=== PATIENT | female | born 1965 | race American Indian/Alaskan Native ===

== ENCOUNTER 2016-09-17 09:40 | Outpatient (CLI) | payer OTHER ==
[2016-09-17 10:50] LABS: Blood Urea Nitrogen 15 mg/dL (7-17)
[2016-09-17] MEDS ORDERED: NACL ONE (12:19)
--- NOTE | 2016-09-17 14:46 | Cat Scan Report ---
CT abdomen and pelvis with contrast: History: Right lower quadrant pain. Large bowel malignancy. Transverse images were obtained from the lower chest to the ischium with coronal and sagittal 2-D reformatted images. The visualized lung bases are clear. There is a well-defined 6.5 mm hypodensity in the left lobe of the liver most likely representing a cyst. The gallbladder has been removed. The abdominal and retroperitoneal organs are lucas unremarkable. The abdominal aorta is normal in size and contour. There is no periaortic or mesenteric adenopathy identified. Most of the oral contrast is in the small bowel. I cannot clearly identify landmarks of the cecum and the possibility that this is been resected may be an explanation in view of her history. The moderate volume of fecal matter in the ascending colon. The bowel is otherwise generally unremarkable. The patient has a reproductive organs. There is no pelvic mass and no fluid. There is degenerative narrowing of the L5-S1 disc. This is scattered minimal spondylosis and areas of sclerosis along the articular margins of mid vertebral lumbar bodies. Impressions: No evidence of acute or chronic abdominal pathology.
== END 2016-09-17 09:41 | disposition home or self-care (01) ==
LOC: CT 09:40
PROVIDERS: ATTEND Internal Medicine Gastroenterology
DX: K92.2 Gastrointestinal hemorrhage, unspecified (principal); M47.897 Other spondylosis, lumbosacral region; R10.11 Right upper quadrant pain; Z85.038 Personal history of other malignant neoplasm of large intestine; Z90.49 Acquired absence of other specified parts of digestive tract
CPT/HCPCS: 36415; 74177; 82565; 84520; Q9967

== ENCOUNTER 2017-03-13 04:00 | Inpatient (IN) | payer OTHER ==
[2017-03-13 04:50] LABS: Basophils % (Auto) 1.1 % (0.0-1.8); Eosinophils % (Auto) 3.6 % (0.0-4.3); Hematocrit 38.5 % (30.3-42.9); Hemoglobin 12.9 gm/dl (10.1-14.3); Mean Corpuscular HGB Conc 34 % (30-34); Mean Corpuscular Hemoglobin 30 pg (28-32); Mean Corpuscular Volume 90 fl (79-97); Platelet Count 209 K/mm3 (140-440); Red Blood Count 4.28 M/mm3 (3.65-5.03); Red Cell Distribution Width 13.8 % (13.2-15.2); White Blood Count 5.1 K/mm3 (4.5-11.0)
[2017-03-13 05:01] LABS: INR 1.11 (0.87-1.13)
[2017-03-13 05:02] LABS: Partial Thromboplastin Time 29.7 Sec. (24.2-36.6)
[2017-03-13 05:05] LABS: Anion Gap 18 mmol/L; BUN/Creatinine Ratio 41.66; Blood Urea Nitrogen 25 mg/dL (7-17); Calcium 9.7 mg/dL (8.4-10.2); Carbon Dioxide 29 mmol/L (22-30); Chloride 100.2 mmol/L (98-107); Glucose 87 mg/dL (65-100); Potassium 3.9 mmol/L (3.6-5.0); Sodium 143 mmol/L (137-145)
[2017-03-13 05:22] LABS: Bilirubin,Urine NEG (Negative); Blood,Urine NEG (Negative); Ketones,Urine NEG (Negative); Leukocyte Esterase,Urine MOD (Negative); Nitrite,Urine NEG (Negative); Protein,Urine <15 mg/dL mg/dL (Negative); Urobilinogen,Urine < 2.0 mg/dL (<2.0)
--- NOTE | 2017-03-13 10:33 | Emergency Department Report ---
ED Chest Pain HPI - General Chief Complaint: Chest Pain Stated Complaint: CHEST PAIN Time Seen by Provider: 03/13/17 10:00 Source: patient Mode of arrival: Ambulatory Limitations: No Limitations - History of Present Illness Initial Comments: 52-year-old Afro-[place] female presents to the emergency department with a one -week history of present worsening but intermittent left-sided chest pain that feels like a "grabbing pain." There is some radiation to the left upper arm. She has some diaphoresis and occasional nausea but denies any vomiting, fever, shortness of breath. She not take anything specific for her symptoms prior to presentation but just took her "regular meds." Her primary care physician is Dr. White. She's never had a stress test but is scheduled for one on the . She has a past medical history of fibromyalgia and previous colon cancer. No recent travel or sick contacts at home. She denies tobacco or illicit drug use or abuse. Severity scale (0 -10): 8 - Related Data Previous Rx's Medication Instructions Recorded Last Taken Type Ibuprofen [Motrin] 800 mg PO Q8HR PRN #10 tablet 09/23/16 Unknown Rx Meclizine HCl [Meclizine CHEW] 25 mg PO Q6HR PRN #15 tab.chew 09/23/16 Unknown Rx Allergies Allergy/AdvReac Type Severity Reaction Status Date / Time chicken derived AdvReac Vomiting,RA Unverified 09/17/16 09:42 SH,HIVES latex AdvReac Rash Unverified 09/17/16 09:42 Sulfa (Sulfonamide AdvReac Rash,HIVES Unverified 09/17/16 09:42 Antibiotics) Heart Score - HEART Score History: Moderately suspicious EKG: Normal Age: 45-65 Risk factors: 1-2 risk factors Troponin: < normal limit HEART Score: 3 - Critical Actions Critical Actions: 0-3 pts:0.9-1.7%risk of adverse cardiac event.Candidate for discharge ED Review of Systems ROS: Stated complaint: CHEST PAIN Other details as noted in HPI Comment: All other systems reviewed and negative Constitutional: diaphoresis. denies: chills, fever Eyes: denies: eye pain, eye discharge, vision change ENT: denies: ear pain, throat pain Respiratory: denies: cough, shortness of breath Cardiovascular: chest pain. denies: palpitations Gastrointestinal: nausea. denies: abdominal pain, vomiting Genitourinary: denies: urgency, dysuria, discharge Musculoskeletal: denies: back pain, joint swelling, arthralgia Skin: denies: rash, lesions Neurological: denies: headache, weakness, paresthesias ED Past Medical Hx - Past Medical History Previous Medical History?: Yes Hx Hypertension: Yes Hx of Cancer: Yes (colon) Additional medical history: elevated liver enzymes. fibroid mylagia - Surgical History Past Surgical History?: Yes Hx Cholecystectomy: Yes Additional Surgical History: colon resection. stomach sleeve - Social History Smoking Status: Never Smoker Substance Use Type: None - Medications Home Medications: Home Medications Medication Instructions Recorded Confirmed Last Taken Type Ibuprofen [Motrin] 800 mg PO Q8HR PRN #10 tablet 09/23/16 Unknown Rx Meclizine HCl [Meclizine CHEW] 25 mg PO Q6HR PRN #15 tab.chew 09/23/16 Unknown Rx ED Physical Exam - General Limitations: No Limitations - Other Other exam information: GENERAL: The patient is well-developed well-nourished. HEENT: Normocephalic. Atraumatic. Extraocular motions are intact. Patient has moist mucous membranes. Pupils equal reactive to light bilaterally. NECK: Supple. Trachea is midline. CHEST/LUNGS: Clear to auscultation. There is no respiratory distress noted. There is some chest pain to palpation of the chest wall but the patient says this is not the same discomfort that brought her to the emergency department. HEART/CARDIOVASCULAR: Regular. There is no tachycardia. There is no gallop rub or murmur. ABDOMEN: Abdomen is soft, nontender. Patient has normal bowel sounds. There is no abdominal distention. SKIN: Skin is warm and dry. NEURO: The patient is awake, alert, and oriented. The patient is cooperative. The patient has no focal neurologic deficits. The patient has normal speech. MUSCULOSKELETAL: There is no tenderness or deformity. There is no limitation range of motion. There is no evidence of acute injury. ED Course Vital Signs 03/13/17 03/13/17 04:06 08:23 Temperature 98.1 F 98.5 F Pulse Rate 74 75 Respiratory 18 20 Rate Blood Pressure 125/87 134/96 O2 Sat by Pulse 100 100 Oximetry TENZIN score - Tenzin Score Age > 65: (0) No Aspirin use within the Past 7 Days: (0) No 3 or more CAD Risk Factors: (0) No 2 or more Angina events in past 24 hrs: (1) Yes Known CAD with more than 50% Stenosis: (0) No Elevated Cardiac Markers: (0) No ST Deviation Greater than 0.5mm: (0) No TENZIN Score: 1 ED Medical Decision Making - Lab Data Result diagrams: 03/13/17 04:20 03/13/17 04:20 - EKG Data -: EKG Interpreted by Me EKG shows normal: sinus rhythm, axis, intervals, QRS complexes, ST-T waves ( nonspecific T waves) Rate: normal - EKG Data When compared to previous EKG there are: no significant change Interpretation: unchanged when compared t (09/23/16) - Radiology Data Radiology results: image reviewed interpreted by me: Chest x-ray did not show any acute process. Heart is normal shape and size. No effusions. No pneumothorax. No signs of pneumonia seen. - Medical Decision Making 52-year-old female presents with progressively worsening one-week history of chest pain. History of fibromyalgia. EKG does not show any ST elevation NC, ischemia or dysrhythmia. Negative troponins 3 and a negative d-dimer. However patient continues to have discomfort. She is already scheduled for a stress test on the but instead will be admitted to hospital for either a stress test or cardio consultation. Accepted for admission by the hospitalist, Dr. Noel. - Differential Diagnosis NC, PE, costochondritis, pneumonia Critical Care Time: No Critical care attestation.: If time is entered above; I have spent that time in minutes in the direct care of this critically ill patient, excluding procedure time. ED Disposition Clinical Impression: Left arm pain Chest pain Qualifiers: Chest pain type: unspecified Qualified Code(s): R07.9 - Chest pain, unspecified Disposition: OP ADMIT IP TO THIS HOSP Is pt being admited?: Yes Condition: Stable Instructions: Chest Pain (ED) Referrals: BEKA WHITE MD [Primary Care Provider] - 3-5 Days
--- NOTE | 2017-03-13 10:57 | XRay Report ---
AP CHEST: HISTORY: chest pain AP view of the chest demonstrates a normal mediastinal and cardiac contour with clear lungs and normal bony and soft tissue structures. IMPRESSION: Unremarkable AP chest.
[2017-03-13] MEDS ORDERED: BABY ASPIRIN PO ONE (11:09)
--- NOTE | 2017-03-13 11:26 | Admit Criteria Form ---
Admission Criteria Documentation: CARDIOLOGY GRG Clinical Indications for Admission to Inpatient Care ( Place 'X' for any and all applicable criteria): Hospital admission is needed for appropriate care of the patient because of ANY ONE of the following (1): [ ] I. Hemodynamic instability as indicated by ALL of the following (1)(2)(3) (4)(5) [ ]a) Vital signs or other findings not as expected for chronic patient condition or baseline [ ]b) Instability indicated by ANY ONE of the following: [ ]i) Hypotension [ ]ii) Symptomatic Tachycardia unresponsive to treatment ( e.g., analgesia, fluids, sedation as indicated) [ ]iii) Inadequate perfusion indicated by ANY ONE of the following: [ ] 1) Lactic acidosis (> 2 mmol/L) [ ] 2) New abnormal capillary refill (> 3 seconds) [ ] 3) Reduced urine output [ ] 4) New altered mental status [ ]iv) Orthostatic vital sign changes unresponsive to treatment (e.g., fluids) [ ]v) IV inotropic or vasopressor medication required to maintain adequate blood pressure or perfusion [ ] II. Severe heart failure as indicated by ANY ONE of the following(17)(18) [ ]a) Respiratory distress [ ]b) Hypotension [ ]c) Anasarca (refractory to outpatient therapy) [ ]d) Cardiac arrhythmias of immediate concern [ ]e) Myocardial ischemia [ ] III. Cardiac arrhythmias or findings of immediate concern indicated by ANY ONE of the following (19)(20): [ ] a) Heart rhythms that are inherently dangerous or unstable indicated by ANY ONE of the following (21)(22)(23): [ ] i) Resuscitated ventricular fibrillation or cardiac arrest [ ] ii) Ventricular escape rhythm [ ] iii) Sustained ventricular tachycardia (30 seconds or more of ventricular rhythm at greater than 100 beats per minute) [ ] iv) Nonsustained ventricular tachycardia and ANY ONE of the following: [ ] 1) Suspected cardiac ischemia as cause or consequence of ventricular tachycardia [ ] 2) In setting of acute myocarditis [ ] b) Unstable cardiac conduction defects indicated by ANY ONE of the following(23)(24)(25) [ ] i) Type II second-degree atrioventricular block [ ]ii) Third-degree atrioventricular block [ ]iii) New-onset left bundle branch block with suspected myocardial ischemia [ ]c) Any heart rhythm and ANY ONE of the following (21)(22)(26)(27) (28) [ ] i) Continuous long-term ECG monitoring needed (e.g., initiation of drug requiring monitoring for more than 24 hours) [ ] ii) Patient has automatic implanted cardioverter defibrillator that is repeatedly firing, malfunctioning, or in need of immediate adjustment of settings beyond the scope of ambulatory or observation care [ ]d) Heart rhythms of concern due to ANY ONE of the following: [ ] i) Hypotension [ ] ii) Respiratory distress [ ] iii) Association with other significant symptoms (e.g., bradycardia with syncope or ongoing dizziness, supraventricular tachycardia with chest pain (14)(15)(17) [ ] IV. Monitoring for cardiac contusion beyond the scope of observation care needed [A](30)(31)(32) [ ] V. Surgical or device complication (e.g., valve replacement complication , pacemaker dysfunction) (35)(41)(44)(45)(46) [ ] . Inpatient palliative care needed. [B](49) Also use Inpatient Palliative Care Criteria [ ] VII. Nonbacterial thrombotic (marantic) endocarditis (36)(43)(47)(48) [X] VIII. Cardiology condition, symptom, or finding for which emergency and observation care has failed or are not considered appropriate. [ ] IX. Acute valvular disease requiring inpatient as indicated by ANY ONE of the following (41) [ ]a) Acute valvular regurgitation (42) [ ]b) Noninfectious valvulitis (43) [ ]c) Obstructive valve thrombosis [ ]d) Paravalvular leak [ ]e) Other significant valvular disorder remaining after emergency or observation level of care (as appropriate) [ ]X. Pericardial disease requiring inpatient treatment as indicated by ANY ONE of the following (33)(34)(35)(36)(37) [ ]a) Suspected tamponade (38)(39)(40) [ ]b) Hemopericardium [ ]c) Other significant pericardial disorder remaining after emergency or observation level of care (as appropriate) [ ] XI. Cardiac ischemia beyond scope of emergency and observation care. [ ] XII. Hypertension requiring inpatient treatment as indicated by ANY ONE of the following (6)(7)(8) [ ]a) SBP greater than 220 mm Hg or DBP greater than 120 mmHg despite treatment [ ]b) SBP greater than 140 mm Hg or DBP greater than 100 mm Hg with evidence of acute end organ damage as indicated by ANY ONE of the following [ ] i) Altered mental status [ ] ii) Acute renal failure as indicated by new onset of ANY ONE of the following (9)(10)(11)(12)(13) [ ]1) 3-fold rise in serum creatinine from baseline [ ]2) Serum creatinine greater than 4 mg/dL ( 354 micromoles/L) with acute rise greater than 0.5 mg/dL (44.2 micromoles/L) [ ]3) Reduction of more than 75% in estimated glomerular filtration rate from baseline [ ]4) Estimated glomerular filtration rate less than 35 mL/min/1.73m2 (0.59 mL/sec/1.73m2) in child up to 18 years of age [ ]5) Cessation of urine output indicated by ALL of the following [ ]A. Adequate volume status [ ]B. Inadequate urine output as indicated by ANY ONE of the following [ ]a. Urine output less than 0.3 mL/kg/hr for 24 hours [ ]b. Anuria (urine output less than 0.1 mL/kg/hr) for 12 hours [ ] iii) Aortic dissection [ ] iv) Myocardial Ischemia [ ] v) Left ventricular heart failure [ ]vi) Retinal Hemorrhage [ ]vii) Other significant finding [ ]c) Hypertension in child requiring inpatient treatment as indicated by ALL of the following(14)(15)(16) [ ] i) Outpatient treatment not effective, not available, or not appropriate [ ]ii) SBP or DBP greater than 95th percentile for age [ ]iii) Evidence of acute end organ damage as indicated by ANY ONE of the following [ ]1) Altered mental status [ ]2) Acute renal failure as indicated by new onset of ANY ONE of the following(9)(10)(11)(12)(13) [ ]A. 3-fold rise in serum creatinine from baseline [ ]B. Serum creatinine greater than 4 mg/dL (354 micromoles/L) with acute rise greater than 0.5 mg/dL (44.2 micromoles/L) [ ]C. Reduction of more than 75% in estimated glomerular filtration rate from baseline [ ]D. Estimated glomerular filtration rate less than 35 mL/min/1.73m2 (0.59 mL/sec/1.73m2) in child up to 18 years of age [ ]E. Cessation of urine output indicated by ALL of the following [ ]a. Adequate volume status [ ]b. Inadequate urine output as indicated by ANY ONE of the following [ ]i) Urine output less than 0.3 mL/kg/hr for 24 hours [ ]ii) Anuria ( urine output less than 0.1 mL/kg/hr) for 12 hours [ ]3) Severe headache [ ]4) Visual disturbance [ ]5) Retinal hemorrhage [ ]6) Other significant finding [ ]XIII. Complications of transplanted heart indicated by ANY ONE of the following(61): [ ]a) Acute graft rejection requiring inpatient management (eg, intravenous immunosuppression)(62)(63) [ ]b) Acute graft heart failure indicated by ANY ONE of the following(64): [ ]i) Hemodynamic instability [ ]ii) Cardiac arrhythmias of immediate concern [ ]iii) Pulmonary edema that is very severe (eg, mechanical ventilation needed, imminent or likely, need for 100% oxygen to keep oxygen saturation above 90%) [ ]iv) Pulmonary edema that is persistent as indicated by ALL of the following: [ ]1) New need for oxygen therapy to keep oxygen saturation above 90% (or increased FiO2 need from baseline) [ ]2) Has not improved sufficiently with emergency department or observation care IV diuretics or other heart failure treatments[E] [ ]v) Altered mental status that is severe or persistent [ ]vi) Increased creatinine (new on laboratory test) with reduction of more than 50% in estimated glomerular filtration rate from baseline [ ]vii) Progressively (ongoing) rising creatinine (known from past laboratory test) with reduction of more than 25% in estimated glomerular filtration rate from baseline [ ]viii) Acute renal failure [ ]ix) Acute peripheral ischemia (eg, examination shows pulseless, cool, mottled, or cyanotic extremity) [ ]x) Pulmonary artery catheter monitoring needed [ ]xi) Other sign or symptom of heart failure requiring inpatient treatment (ie, too severe or not responsive to outpatient and observation care treatment) [ ]c) Infection requiring inpatient management (eg, Hemodynamic instability, need for intravenous antimicrobial treatment)(66)(67)(68)(69)(70) [ ]d) Cardiac allograft vasculopathy requiring inpatient management ( eg evidence of cardiac ischemia)(71) [ ]e) Other complication of transplanted heart (eg, stroke, severe pulmonary hypertension, severe valvular dysfunction) requiring inpatient management(72) The original [facility] [employer] content created by [facility] has been revised. The portions of the content which have been revised are identified through the use of italic text or in bold, and [facility] has neither reviewed nor approved the modified material. All other unmodified content is copyright [facility] [employer]. Please see references footnoted in the original [facility] [employer] edition 2016 Admission Criteria Met: Yes
[2017-03-13] MEDS ORDERED: MORPHINE IV ONE (12:13)
[2017-03-13] MEDS ORDERED: MILK OF MAGNESIA PO PRN (12:28)
[2017-03-13] MEDS ORDERED: ZOFRAN IV PRN (12:28)
[2017-03-13] MEDS ORDERED: DULCOLAX PR PRN (12:28)
[2017-03-13] MEDS ORDERED: TYLENOL PO PRN (12:28)
[2017-03-13] MEDS ORDERED: NITRO-BID 2% TP SCH (13:00)
[2017-03-13] MEDS: MORPHINE IV PRN ×2 (13:38→20:05)
[2017-03-13 13:49] LABS: Partial Thromboplastin Time 29.8 Sec. (24.2-36.6)
--- NOTE | 2017-03-13 14:01 | XRay Report ---
ROUTINE CHEST, TWO VIEWS: HISTORY: chest pain. The trachea, heart, mediastinal contour, lung reynolds and bony thorax are unremarkable. IMPRESSION: Unremarkable chest x-ray.
[2017-03-13 14:07] LABS: Creatine Kinase MB 1.2 ng/mL (0.0-4.0)
[2017-03-13 14:13] LABS: Creatine Kinase 163 units/L (30-135)
--- NOTE | 2017-03-13 17:56 | History and Physical Report ---
History of Present Illness Date of examination: 03/13/17 Date of admission: 03/13/17 12:28 Chief complaint: chest pain History of present illness: Patient is a 52-year-old lady was a history of fibromyalgia, hypertension and colon cancer status post resection patient having left-sided chest pain 1 week prior to presentation. Severity was 9/10. Radiating to the left arm. Was intermittent. Lasting 10-15 minutes. Associated with shortness of breath and diaphoresis. Denies any orthopnea proximal nocturnal dyspnea or palpitation. No fever or chills. no abdominal pain. Had nausea with vomiting 1. Continue the emergency department where initial set of cardiac enzymes were normal. Chest x-ray was unremarkable. Patient had a stress test done. Was therefore admitted for further evaluation. EKG was unremarkable when compared to that of September 2016. Past History Past Medical History: hypertension, other (fibromyalgia ) Past Surgical History: bowel surgery Social history: lives with family, full code. denies: smoking, alcohol abuse, prescription drug abuse, IV drug use Family history: hypertension Medications and Allergies Allergies Allergy/AdvReac Type Severity Reaction Status Date / Time chicken derived AdvReac Vomiting,RA Unverified 09/17/16 09:42 SH,HIVES latex AdvReac Rash Unverified 09/17/16 09:42 Sulfa (Sulfonamide AdvReac Rash,HIVES Unverified 09/17/16 09:42 Antibiotics) Home Medications Medication Instructions Recorded Confirmed Last Taken Type Cyclobenzaprine [Flexeril] 10 mg PO QHS PRN 03/13/17 03/13/17 03/12/17 History Lisinopril/Hydrochlorothiazide 1 tab PO QDAY 03/13/17 03/13/17 03/12/17 History [Zestoretic 20-12.5 mg] Nortriptyline [Pamelor] 50 mg PO QDAY 03/13/17 03/13/17 03/12/17 History Sertraline [Zoloft] 50 mg PO QDAY 03/13/17 03/13/17 03/12/17 History amLODIPine [Norvasc] 10 mg PO DAILY 03/13/17 03/13/17 03/12/17 History Active Meds: Active Medications Acetaminophen (Tylenol) 650 mg PO Q4H PRN PRN Reason: Pain MILD(1-3)/Fever >100.5/CHAMORRO Aspirin (Aspirin) 325 mg PO QDAY [facility] Bisacodyl (Dulcolax) 10 mg [place] QDAY PRN PRN Reason: Constipation unrelieved by MOM Enoxaparin Sodium (Lovenox) 40 mg SUB-Q QDAY [facility] Magnesium Hydroxide (Milk Of Magnesia) 30 ml PO Q4H PRN PRN Reason: Constipation Metoprolol Tartrate (Lopressor) 50 mg PO DAILY [facility] Morphine Sulfate (Morphine) 2 mg IV Q4H PRN PRN Reason: Pain, Moderate (4-6) Last Admin: 03/13/17 13:38 Dose: 2 mg Nitroglycerin (Nitro-Bid 2%) 1 inch TP DAILY LAZARA PRN Reason: Protocol Ondansetron HCl (Zofran) 4 mg IV Q8H PRN PRN Reason: N/V unrelieved by Reglan Last Admin: 03/13/17 13:38 Dose: 4 mg Review of systems Constitutional: Well Nouridhed and Well developed. Head: NC/ AT Eyes: Denies any visual impairments. No discharge from the eyes Nose: Denies any rhinorrhea or epistaxis Throats: Denies any post nasal drainage. Ears: Denies any hearing deficits Cardiovascular system: As chest pain, shortness of breath, denies orthopnea, paroxysmal nocturnal dyspnea, or palpitation. Respiratory system: Denies any cough, difficulty breathing, wheezing, pleuritic chest pain, Gastrointestinal system: Denies any abdominal pain, nausea vomiting, hematemesis or melena. Neurological system: Denies any headache, slurred speech, facial droop, lateralizing weakness Genitalia system: Denies any dysuria, urinary frequency or urgency, urethral discharge Skin: No rashes, hyperpigmented spots. Hematological: Denies any cervical tenderness hemorrhages or petechia. Immunological: Denies any multiple septic spots, Lymphatic: Denies any generalized lymphadenopathy. Endocrine: Denies any polyuria, polydipsia, polyphagia. No heat or cold intolerance. Musculoskeletal system: No joint pain or swelling. Psych: No visual, tactile, auditory or hallucination Exam - Constitutional Vitals: Temp Pulse Resp BP Pulse Ox 97.5 F L 66 18 108/67 98 03/13/17 14:45 03/13/17 16:14 03/13/17 14:45 03/13/17 14:45 03/13/17 16:14 General appearance: Present: no acute distress, well-nourished - EENT Eyes: Present: PERRL ENT: hearing intact, clear oral mucosa - Neck Neck: Present: supple, normal ROM - Respiratory Respiratory effort: normal Respiratory: bilateral: CTA - Cardiovascular Heart Sounds: Present: S1 & S2. Absent: rub, click - Extremities Extremities: pulses symmetrical, No edema Peripheral Pulses: within normal limits - Abdominal General gastrointestinal: Present: soft, non-tender, non-distended, normal bowel sounds Female genitourinary: Present: normal - Integumentary Integumentary: Present: clear, warm, dry - Musculoskeletal Musculoskeletal: gait normal, strength equal bilaterally - Psychiatric Psychiatric: appropriate mood/affect, intact judgment & insight - Neurologic Neurologic: CNII-XII intact, moves all extremities Results - Labs CBC & Chem 7: 03/13/17 04:20 03/13/17 04:20 Labs: Abnormal lab results 03/13/17 03/13/17 Range/Units 12:30 12:37 Total Creatine Kinase 163 H (30-135) units/L Cholesterol 201 H (50-199) mg/dL HDL Cholesterol 74 H (40-59) mg/dL Assessment and Plan -Atypical chest pain nonreproducible -Hypertension -Hyperlipidemia -History of fibromyalgia Admits to telemetry Obtain Serial cardiac enzymes, commence oxygen nitroglycerin, aspirin, morphine , beta radha, statin. Stress thallium in the morning if cardiac enzymes and normal. Continue home medications for fibromyalgia namely gabapentin DVT prophylaxis with Lovenox and GI with Pepcid Spent 35 minutes during his admission process and his admission of management plan to the patient
[2017-03-13] MEDS: ASPIRIN PO SCH (23:24)
[2017-03-13] MEDS: LOPRESSOR PO SCH (23:24)
[2017-03-13] MEDS: LOVENOX SUB-Q SCH (23:24)
[2017-03-13] MEDS ORDERED: FLEXERIL PO PRN (23:59)
[2017-03-14 06:54] LABS: Hematocrit 38.3 % (30.3-42.9); Hemoglobin 12.9 gm/dl (10.1-14.3); Mean Corpuscular HGB Conc 34 % (30-34); Mean Corpuscular Hemoglobin 30 pg (28-32); Mean Corpuscular Volume 90 fl (79-97); Platelet Count 216 K/mm3 (140-440); Red Blood Count 4.27 M/mm3 (3.65-5.03); Red Cell Distribution Width 13.5 % (13.2-15.2); White Blood Count 4.7 K/mm3 (4.5-11.0)
[2017-03-14 07:15] LABS: Alanine Aminotransferase 17 units/L (7-56); Albumin 3.8 g/dL (3.9-5); Albumin/Globulin Ratio 1.3 %; Alkaline Phosphatase 71 units/L (35-129); Anion Gap 18 mmol/L; BUN/Creatinine Ratio 25.71; Blood Urea Nitrogen 18 mg/dL (7-17); Calcium 9.2 mg/dL (8.4-10.2); Carbon Dioxide 27 mmol/L (22-30); Chloride 103.7 mmol/L (98-107); Glucose 80 mg/dL (65-100); Potassium 4.2 mmol/L (3.6-5.0); Sodium 144 mmol/L (137-145); Total Protein 6.7 g/dL (6.3-8.2)
[2017-03-14 08:02] LABS: Basophils % (Manual) 0 % (0.0-1.8); Blastocytes % (Manual) 0 %
[2017-03-14 08:03] LABS: Diff Status Complete; Ovalocytes Rare
[2017-03-14] MEDS ORDERED: NORVASC PO SCH (10:00)
[2017-03-14] MEDS ORDERED: NON-FORMULARY (Lisinopril/Hydrochlorothiazide [Zestoretic 20-12.5 Mg] 1 TAB) PO SCH (10:00)
[2017-03-14] MEDS ORDERED: ZOLOFT PO SCH (10:00)
[2017-03-14] MEDS ORDERED: HCTZ PO SCH (10:00)
[2017-03-14] MEDS ORDERED: PAMELOR PO SCH (10:00)
[2017-03-14] MEDS ORDERED: ZESTRIL PO SCH (10:00)
[2017-03-14] MEDS ORDERED: LEXISCAN IV ONE ×2 (10:45→10:57)
[2017-03-14] MEDS: ASPIRIN PO SCH (12:01)
[2017-03-14] MEDS: LOPRESSOR PO SCH (12:03)
[2017-03-14] MEDS: LOVENOX SUB-Q SCH (12:07)
--- NOTE | 2017-03-14 13:44 | Discharge Summary ---
Providers - Providers Date of Admission: 03/13/17 12:28 Date of discharge: 03/14/17 Attending physician: MARILU DEVINE Primary care physician: BEKA WHITE Hospitalization Condition: Stable Hospital course: Patient is a 52 yo woman with a history of htn, fibromyalgia and colon cancer 3 years ago who presents with sharp left sided cp lasting less than 5 minutes. She does have dysuria this morning. She did have a uri recently. CXR read as unremarkable, stress test is negative per Cardiology, troponin where negative. D -dimer were negative -Chest pain reproducible with touch due to costochondritis: follow up with pcp Dr. Beka White -HTN -Fibromyalgia -Colon Cancer -Uncomplicated UTI Disposition: DC-01 TO HOME OR SELFCARE Time spent for discharge: 36 minutes Core Measure Documentation - Palliative Care Palliative Care/ Comfort Measures: Not Applicable - Core Measures Any of the following diagnoses?: none - VTE Discharge Requirements Deep Vein Thrombosis/Pulmonary Embolism Present on Admission: No Has pt received <5 days of overlap therapy or INR<2.0: No Anticoagulant overlap therapy prescribed at discharge: No Contraindication No Overlap Therapy order at DC: Not Indicated Exam - Physical Exam Narrative exam: Gen: wdwn nad a/o x 3 CVS: rrr normal s1s2 Chest: cta b, reproducible chest wall tenderness Abd: soft ntnd gbs Neuro nonfocal - Constitutional Vitals: Temp Pulse Resp BP Pulse Ox 98.3 F 68 20 94/75 98 03/14/17 08:00 03/14/17 10:00 03/14/17 10:00 03/14/17 08:00 03/14/17 10:00 Plan Activity: other (no strenous activities until cleared by pcp) Diet: low salt Follow up with: BEKA WHITE MD [Primary Care Provider] - 3-5 Days Prescriptions: Ciprofloxacin HCl [Ciprofloxacin TAB] 500 mg PO BID #6 tablet
[2017-03-14 14:28] VITALS: BP 114/80
--- NOTE | 2017-03-14 21:45 | Treadmill Report ---
NUCLEAR PERFUSION STUDY. READING PHYSICIAN: Danny Leong MD REASON FOR STUDY: Chest pain. IMAGING PROTOCOL: The patient received 10 mCi of Technetium 99m Tetrofosmin for resting image and 28 mCi of Technetium 99m Tetrofosmin for stress imaging. The imaging for the whole procedure was completed 30-90 minutes following the initial injection of Technetium 99m tetrofosmin. The SPECT imaging in the 180 degree arc was performed in the right anterior oblique projection. Computerized reconstruction of the images was performed for analysis. IMAGING RESULTS: Normal cavity size from stress to rest. Normal distribution of radionuclide in the anterior, inferior, septal, and apical regions. Gated SPECT, EF 62% with no wall motion abnormalities. The patient infused Lexiscan with no EKG changes. SUMMARY: 1. Negative Lexiscan EKG. 2. Normal rest and stress myocardial perfusion scan. No significant stress ischemia. No wall motion abnormality. Gated SPECT, EF 62%. JOB# [id number] NIKKIE/MARISSA
== END 2017-03-14 15:00 | disposition home or self-care (01) | DRG 206 ==
LOC: ED 04:00 → 4A 12:28
PROVIDERS: ADMIT Family Medicine; ATTEND Internal Medicine
DX: M94.0 Chondrocostal junction syndrome [Tietze] (principal); I10 Essential (primary) hypertension; E78.5 Hyperlipidemia, unspecified; R30.0 Dysuria; N39.0 Urinary tract infection, site not specified; M79.7 Fibromyalgia; Z88.2 Allergy status to sulfonamides; Z85.038 Personal history of other malignant neoplasm of large intestine; Z91.040 Latex allergy status; Z90.49 Acquired absence of other specified parts of digestive tract; Z82.49 Family history of ischemic heart disease and other diseases of the circulatory system
CPT/HCPCS: 36415; 71010; 71020; 78452; 80048; 80053; 80061; 81001; 81025; 82550; 82553; 84484; 84703; 85007; 85025; 85379; 85610; 85730; 93005; 93010; 93017; 96374; 96375; 99285; A9502; J1650; J2270; J2405; J2785

== ENCOUNTER 2017-04-30 09:59 | Outpatient (CLI) | payer OTHER ==
[2017-04-30 11:03] LABS: Blood Urea Nitrogen 18 mg/dL (7-17)
--- NOTE | 2017-04-30 16:02 | Magnetic Resonance Report ---
MRI BRAIN WITHOUT AND WITH CONTRAST: 04/30/17 10:12:00 CLINICAL: MS. No comparison TECHNIQUE: Axial diffusion, T1, FLAIR, gradient echo T2*, and coronal and axial T2 and sagittal T1 plus coronal and axial postcontrast T1 sequences on a 1.5 Angella magnet. 15.0 cc of Multihance was injected intravenously for the contrast portion of the exam. Consent was obtained prior to the administration of contrast. FINDINGS: Normal ventricles and sulci. No restricted diffusion. No mass or enhancing lesion. Numerous bilateral subtle frontal and parietal lobe white matter hyperintensities on FLAIR and T2. None enhance. The largest is in the left parietal lobe white matter and measures 6 mm. No hemorrhage, edema or extra-axial collection. Normal pituitary and optic chiasm. The brainstem and cerebellum are normal. Intact vascular flow voids. The orbits, sinuses and soft tissues are normal. Normal calvarium and skull base. IMPRESSION: Numerous bilateral frontal and parietal subtle white matter hyperintensities on FLAIR and T2. These lesions are nonspecific and are not necessarily indicative of MS. No enhancing lesions. No other findings.
== END 2017-04-30 10:00 | disposition home or self-care (01) ==
LOC: MRI 09:59
PROVIDERS: ATTEND Psychiatry & Neurology Neurology
DX: G35 Multiple sclerosis (principal); I10 Essential (primary) hypertension
CPT/HCPCS: 36415; 70553; 82565; 84520; A9577

== ENCOUNTER 2017-05-13 20:32 | Emergency (ER) | payer OTHER ==
[2017-05-13 21:20] VITALS: BP 146/92
[2017-05-13 22:07] LABS: Alanine Aminotransferase 13 units/L (7-56); Albumin 4.1 g/dL (3.9-5); Albumin/Globulin Ratio 1.4 %; Alkaline Phosphatase 90 units/L (35-129); Anion Gap 16 mmol/L; BUN/Creatinine Ratio 26; Blood Urea Nitrogen 21 mg/dL (7-17); Calcium 9.1 mg/dL (8.4-10.2); Carbon Dioxide 26 mmol/L (22-30); Chloride 104.4 mmol/L (98-107); Glucose 97 mg/dL (65-100); Lipase 28 units/L (13-60); Potassium 3.6 mmol/L (3.6-5.0); Sodium 143 mmol/L (137-145); Total Protein 7.1 g/dL (6.3-8.2)
[2017-05-13 22:09] LABS: Basophils % (Auto) 0.8 % (0.0-1.8); Hematocrit 36.7 % (30.3-42.9); Hemoglobin 12.8 gm/dl (10.1-14.3); Mean Corpuscular HGB Conc 35 % (30-34); Mean Corpuscular Hemoglobin 31 pg (28-32); Mean Corpuscular Volume 90 fl (79-97); Platelet Count 226 K/mm3 (140-440); Red Blood Count 4.09 M/mm3 (3.65-5.03); Red Cell Distribution Width 13.3 % (13.2-15.2); White Blood Count 5.2 K/mm3 (4.5-11.0)
== END 2017-05-13 21:37 | disposition left against medical advice (07) ==
LOC: ED 20:32
DX: R10.9 Unspecified abdominal pain (principal); Z53.21 Procedure and treatment not carried out due to patient leaving prior to being seen by health care provider
CPT/HCPCS: 36415; 80053; 83690; 85025

== ENCOUNTER 2017-07-07 08:58 | Day surgery (SDC) | payer OTHER ==
[2017-07-07 10:49] LABS: INR 0.95 (0.87-1.13)
--- NOTE | 2017-07-07 12:19 | History and Physical Report ---
History of Present Illness Date of examination: 07/07/17 Chief complaint: falling,lt. sided weakness Medications and Allergies Allergies Allergy/AdvReac Type Severity Reaction Status Date / Time chicken derived AdvReac Vomiting,RA Unverified 09/17/16 09:42 SH,HIVES latex AdvReac Rash Unverified 09/17/16 09:42 Sulfa (Sulfonamide AdvReac Rash,HIVES Unverified 09/17/16 09:42 Antibiotics) Home Medications Medication Instructions Recorded Confirmed Last Taken Type Cyclobenzaprine [Flexeril 10 MG 10 mg PO QHS PRN 03/13/17 07/07/17 07/06/17 History TAB] 10mg Lisinopril/Hydrochlorothiazide 1 tab PO QDAY 03/13/17 07/07/17 07/07/17 History [Zestoretic 20-12.5 mg] 1 Nortriptyline [Pamelor] 50 mg PO QDAY 03/13/17 07/07/17 07/06/17 History 50mg Sertraline [Zoloft] 50 mg PO QDAY 03/13/17 07/07/17 07/06/17 History 50mg amLODIPine [Norvasc] 10 mg PO DAILY 03/13/17 07/07/17 07/07/17 History 10mg Exam Vital Signs Temp Pulse Resp BP 98.4 F 76 16 110/78 07/07/17 09:50 07/07/17 09:50 07/07/17 09:50 07/07/17 09:50
--- NOTE | 2017-07-07 12:24 | Procedure Note ---
Date of procedure: 07/07/17 Pre-op diagnosis: ms Post-op diagnosis: same Procedure: lumbar puncture Findings: 12cc clear fluid Anesthesia: local Surgeon: AVERY CHENG Estimated blood loss: none Pathology: list (csf) Specimen disposition: to lab Condition: stable Disposition: observation
[2017-07-07 12:32] VITALS: BP 118/83
[2017-07-07 12:44] LABS: Glucose,CSF 53 mg/dL
[2017-07-07 12:49] LABS: Appearance,CSF Clear
[2017-07-07 12:57] LABS: White Blood Cell,CSF 3 /mm3 (1-10)
--- NOTE | 2017-07-07 13:26 | Fluoroscopy Report ---
Lumbar puncture: Suspected MS. The patient was placed prone on the x-ray table. Exam performed under fluoroscopic observation. The skin was cleansed with Betadine and 1% lidocaine used for local anesthesia. An 18-gauge needle was successfully placed at the L4 level. A total of 12 cc of clear fluid was removed and equally into 4 separate vials for laboratory evaluation. No technical patient complications encountered. The patient was sent for observation prior to discharge. Verbal followup instructions were given.
[2017-07-07 14:12] LABS: Basophils CSF 0 %
[2017-07-07 14:14] LABS: CSF Diff Status Complete
== END 2017-07-07 12:45 | disposition home or self-care (01) ==
LOC: CATHLABREC 08:58 → FLUORO 08:58 → CATHLABREC 12:45
PROVIDERS: ATTEND Psychiatry & Neurology Neurology
DX: G35 Multiple sclerosis (principal); Z91.040 Latex allergy status; Z88.2 Allergy status to sulfonamides; Z91.018 Allergy to other foods; Z79.899 Other long term (current) drug therapy
CPT/HCPCS: 36415; 62270; 77003; 82947; 84160; 85610; 85730; 87116; 89051

== ENCOUNTER 2017-10-02 13:35 | Outpatient (CLI) | payer OTHER ==
--- NOTE | 2017-10-02 14:16 | XRay Report ---
ROUTINE CHEST, TWO VIEWS: HISTORY: Cough, chest pain. The trachea, heart, mediastinal contour, lung reynolds and bony thorax are unremarkable. IMPRESSION: Unremarkable chest x-ray. No change since 03/13/17.
== END 2017-10-02 13:36 | disposition home or self-care (01) ==
LOC: XRAY 13:35
PROVIDERS: ATTEND Family Medicine
DX: M94.0 Chondrocostal junction syndrome [Tietze] (principal); R05 Cough
CPT/HCPCS: 71046